=== PATIENT | male | born 1965 | race Caucasian/White ===

== ENCOUNTER 2016-10-11 19:36 | Emergency (ER) | payer OTHER ==
--- NOTE | ~2016-10-11 | CT52 ---
[facility] A Service of [facility] RADIOLOGY TEXT RESULTS PATIENT: JIGAR SCHAEFER LOCATION: [facility] : 63 UNIT #: [id number] AGE: [address]: Davie Garcia MD SEX: M ORDER DR: [id number] [facility] [address] [place], [place] [address] [id number] E MR#: [id number] Acc #: [id number] NAME: JIGAR SCHAEFER. : 1965 SEX: M STUDY DATE/TIME: 10/11/2016 20:49 UNIT: [facility] ROOM: STUDY DESCRIPTION: CT Cervical Spine Wo Cont Attending Physician: Davie Garcia M.D. Ordering Physician: Davie Garcia M.D. Primary Care Physician: Jorge Luis Champion M.D. MEDICAL IMAGING REPORT This report is preliminary unless electronic signature is present EXAM CT cervical spine without contrast DATE 10/11/2016 at 20:49 HISTORY 51-year-old male found down in a liquor store. Intoxicated. Dizziness with neck pain today. COMPARISON None. PROCEDURE 2 mm axial images through the cervical spine without contrast. Sagittal and coronal reformatted images were obtained. This CT exam was performed with one or more of the following radiation dose reduction techniques: Automatic exposure control, adjustment of mA and/or kV according to patient size, and iterative reconstruction. FINDINGS There is advanced loss of disc height at C5-6 and C6-7 with endplate sclerosis and anterior and posterior osteophyte formation and vacuum disc phenomenon. No acute cervical spine fracture or subluxation is seen. At C3-4, there is bilateral uncovertebral spurring with moderate etwcg-wjlczpi-muim-left facet arthropathy, borderline canal stenosis, severe bilateral neural foraminal narrowing. At C4-5, there is bpxmx-vmtjujv-ngkg-left uncovertebral spurring with moderate right, mild left facet arthropathy. There is severe right neural foraminal narrowing, moderate left neural foraminal narrowing, and borderline canal stenosis. [facility] A Service of [facility] RADIOLOGY TEXT RESULTS PATIENT: JIGAR SCHAEFER LOCATION: [facility] #: [id number] : 63 UNIT #: [id number] AGE: [address]: Davie Garcia MD SEX: M ORDER DR: At C5-6, there is posterior disc osteophyte formation eccentric toward the left with left lateral recess stenosis. There is bilateral uncovertebral spurring and tpzy-eg-lzzytjmo bilateral facet arthropathy. There is mild canal stenosis, moderate right, severe left neural foraminal narrowing. At C6-7, broad-based posterior disc osteophyte formation is present resulting in mild canal stenosis. There is bilateral uncovertebral spurring, left greater than right with mild facet arthropathy. There is severe left, mild to moderate right neural foraminal narrowing. C7-T1, no significant disc bulge, canal or foraminal stenosis is seen. Imaged lung apices appear clear. Soft tissues are within normal limits. IMPRESSION 1. No acute cervical spine fracture or subluxation. 2. Multilevel degenerative changes in the cervical spine as described in the report, with severe left greater than right C3-4, severe right C4-5, severe left greater than right C5-6 neural foraminal stenosis. 3. Mild canal stenosis at C6-7, and left lateral recess stenosis at C5-6. Dictated by... She Welch M.D. THIS IS AN ELECTRONICALLY VERIFIED REPORT She Welch M.D. at 10/13/2016 8:34 AM JOSE DAVID/genaro TD: 10/12/2016 00:48 JOB #: [id number] MEDICAL IMAGING REPORT Page 1 of 1 COPY
--- NOTE | ~2016-10-11 | CR72 ---
[facility] A Service of [facility] RADIOLOGY TEXT RESULTS PATIENT: JIGAR SCHAEFER LOCATION: [facility] : 63 UNIT #: [id number] AGE: [address]: Davie Garcia MD SEX: M ORDER DR: [id number] [address] [place], [place] [address] [id number] E MR#: [id number] Acc #: [id number] NAME: JIGAR SCHAEFER. : 1965 SEX: M STUDY DATE/TIME: 10/11/2016 19:46 UNIT: [facility] ROOM: STUDY DESCRIPTION: CR Chest Single View Portable Attending Physician: Davie Garcia M.D. Ordering Physician: Davie Garcia M.D. Primary Care Physician: Jorge Luis Champion M.D. MEDICAL IMAGING REPORT This report is preliminary unless electronic signature is present EXAM AP portable chest 10/11/2016 at 19:46 HISTORY 51-year-old male with cough, weakness and alcohol intoxication. Fell today. COMPARISON AP portable chest 10/29/2005. FINDINGS No acute airspace disease. Heart and mediastinal contour are within normal limits. No acute displaced rib fracture is identified on the current exam. No pleural effusion or pneumothorax is seen. Suspected old bilateral rib fractures. IMPRESSION 1. No acute cardiopulmonary findings. 2. Suspected old bilateral rib fractures. Dictated by... She Welch M.D. THIS IS AN ELECTRONICALLY VERIFIED REPORT She Welch M.D. at 10/12/2016 7:11 AM LLH/pcl TD: 10/12/2016 00:02 JOB #: [id number] [facility] A Service [facility] RADIOLOGY TEXT RESULTS PATIENT: JIGAR SCHAEFER LOCATION: [facility] : 63 UNIT #: [id number] AGE: [address]: Davie Garcia MD SEX: M ORDER DR: MEDICAL IMAGING REPORT Page 1 of 1 COPY
--- NOTE | ~2016-10-11 | EKG ---
PATIENT: JIGAR SCHAEFER UNIT #: [id number] Ventricular Rate: 76 BPM Atrial Rate: 76 BPM P-R Interval: 156 ms QRS Duration: 94 ms Q-T Interval: 392 ms QTC Calculation(Bezet): 441 ms P [place]: 10 degrees Calculated R [place]: 12 degrees Calculated T [place]: 29 degrees Diagnosis Line: Normal sinus rhythm Diagnosis Line: Minimal voltage criteria for LVH, may be normal Diagnosis Line: variant Diagnosis Line: Borderline ECG Diagnosis Line: No previous ECGs available Diagnosis Line: Confirmed by RUY MCBRIDE MD ([id number]) on 10/12/2016 Diagnosis Line: 5:47:33 AM INTERPRETING MD: RAE GAUTAM
--- NOTE | ~2016-10-11 | CT71 ---
[facility] A Service of [facility] RADIOLOGY TEXT RESULTS PATIENT: JIGAR SCHAEFER LOCATION: [facility] : 63 UNIT #: [id number] AGE: [address]: Davie Garcia MD SEX: M ORDER DR: [id number] [place], [place] [address] [id number] E MR#: [id number] Acc #: [id number] NAME: JIGAR SCHAEFER. : 1965 SEX: M STUDY DATE/TIME: 10/11/2016 20:42 UNIT: [facility] ROOM: STUDY DESCRIPTION: CT Head Wo Contrast Attending Physician: Davie Garcia M.D. Ordering Physician: Davie Garcia M.D. Primary Care Physician: Jorge Luis Champion M.D. MEDICAL IMAGING REPORT This report is preliminary unless electronic signature is present EXAM Head CT no contrast, 10/11/2016 INDICATIONS Found down in a liquor store, alcohol on board, spice on board, dizziness, neck pain. TECHNIQUE Noncontrast CT of the brain was performed. This CT exam was performed with one or more of the following radiation dose reduction techniques: Automatic exposure control, adjustment of mA and/or kV according to patient size, and iterative reconstruction. COMPARISON 10/29/[address] BRAIN: There is mild generalized atrophy, sulci and ventricles otherwise unremarkable, no midline shift, no evidence of acute intracranial hemorrhage. There is no mass, mass effect or edema to suggest acute infarct and no extraaxial fluid collections are present. Globes are intact. Bones are intact. Small retention cyst or polyp in the right maxillary sinus. Mild ethmoid sinus disease. IMPRESSION 1. No clearly acute intracranial process, no evidence of acute intracranial hemorrhage. 2. Mild ethmoid and maxillary sinus disease. Dictated by... Topher Rod M.D. [facility] A Service of [facility] RADIOLOGY TEXT RESULTS PATIENT: JIGAR SCHAEFER LOCATION: [facility] : 63 UNIT #: [id number] AGE: [address]: Davie Garcia MD SEX: M ORDER DR: THIS IS AN ELECTRONICALLY VERIFIED REPORT Topher Rod M.D. at 10/12/2016 2:52 PM HO/genaro TD: 10/12/2016 00:43 JOB #: [id number] MEDICAL IMAGING REPORT Page 1 of 1 COPY
[~2016-10-11 19:36] MED LIST: ALPRAZOLAM PO; CELEXA PO; IBUPROFEN800 MG PO; KEFLEX500 MG PO; LIPITOR PO; LISINOPRIL PO; PAXIL40 MG PO; PRINIVIL40 MG PO; PROZAC PO; REMERON PO; SEROQUEL PO; SEROQUEL XR150 MG PO; VICODIN 5/500 T1 TAB PO; VYVANSE40 MG PO; XANAX1 MG PO
[2016-10-11 19:46] LABS: BASOPHIL% 0.5 % (0-2.5); EOSINOPHIL# 0.4 X10e3 (0-0.7); EOSINOPHIL% 7.7 % (0.0-7.0); HEMOGLOBIN 9.9 gm/dL (13.0-16.0); LYMPHOCYTE# 1.4 X10e3 (1.0-3.5); LYMPHOCYTE% 28.3 % (17.0-45.0); MEAN CELL VOLUME 89.8 FL (83-96); MEAN CORPUSCULAR HEMOGLOBIN 29.6 PG (28-34); MEAN PLATELET VOLUME 6.1 FL (6.5-11.5); MONOCYTE# 0.3 X10e3 (0-1.0); MONOCYTE% 6.7 % (3.0-12.0); NEUTROPHIL# 2.8 X10e3 (1.5-7.1); NEUTROPHIL% 56.8 % (40-75); PLATELET COUNT 238 X10e3 (140-420); RED BLOOD COUNT 3.34 X10e (3.90-5.60); RED CELL DISTRIBUTION WIDTH 14.1 % (11.0-15.5); WHITE BLOOD COUNT 4.8 X10e3 (4.0-10.5)
[2016-10-11 19:53] LABS: DIFF IND NO
[2016-10-11 20:14] LABS: ALBUMIN SERUM 3.7 g/dL (3.5-5.0); ALCOHOL BLOOD 24 mg/dL (0); ALKALINE PHOSPHATASE 97 U/L (32-92); ALT (SGPT) 14 U/L (10-40); AST (SGOT) 28 U/L (10-42); BILIRUBIN,TOTAL 0.5 mg/dL (0.2-2.0); BLOOD UREA NITROGEN 20 mg/dL (9-23); BUN/CREATININE RATIO 18.18; CALCIUM SERUM 8.6 mg/dL (8.4-10.2); CARBON DIOXIDE 25 mmol/L (22-31); CHLORIDE 99 mmol/L (100-111); CREATININE SERUM 1.1 mg/dL (0.6-1.4); GLOM FILT RATE Estimated 76.8 mL/min (>60); GLUCOSE FASTING 78 mg/dL (70-110); POTASSIUM 4.9 mmol/L (3.5-5.1); PROTEIN TOTAL SERUM 6.9 g/dL (6.0-8.3); SODIUM 132 mmol/L (135-145)
[2016-10-11 20:18] LABS: BILIRUBIN, DIRECT <0.1 mg/dL (0.0-0.2); BILIRUBIN,INDIRECT 0.4 mg/dL (0.0-0.9)
[2016-10-11 21:06] LABS: POC - CKMB 2.6 ng/mL (0.0-7.9); POC - TROPONIN <0.05 ng/mL (<=0.05)
[2016-10-11 21:54] LABS: AMPHETAMINE POS (NEG); BARBITURATES NEG (NEG); BENZODIAZEPINES POS (NEG); COCAINE NEG (NEG); MARIJUANA NEG (NEG); OPIATES POS (NEG); TRICYCLIC ANTIDEPRESSANTS NEG (NEG); U METHADONE NEG (NEG)
[2016-10-11 22:17] LABS: POC - CKMB 1.9 ng/mL (0.0-7.9); POC - TROPONIN <0.05 ng/mL (<=0.05)
== END 2016-10-11 22:45 | disposition home or self-care (01) ==
LOC: CED 19:36
PROVIDERS: Emergency Medicine
DX: Z04.3 Encounter for examination and observation following other accident (principal); F19.10 Other psychoactive substance abuse, uncomplicated; I10 Essential (primary) hypertension; Z88.2 Allergy status to sulfonamides; Z88.8 Allergy status to other drugs, medicaments and biological substances; W19.XXXA Unspecified fall, initial encounter
CPT/HCPCS: 36415; 70450; 71010; 72125; 80048; 80076; 80307; 82553; 82947; 84484; 85025; 93005; 99284; G0480

== ENCOUNTER 2016-10-20 15:40 | Emergency (ER) | payer OTHER | END 2016-10-20 17:43 | disposition home or self-care (01) | LOC: CED 15:40 | DX: T40.1X1A Poisoning by heroin, accidental (unintentional), initial encounter (principal); F19.10 Other psychoactive substance abuse, uncomplicated; I10 Essential (primary) hypertension; F31.9 Bipolar disorder, unspecified; F17.200 Nicotine dependence, unspecified, uncomplicated; Z90.89 Acquired absence of other organs; Z98.890 Other specified postprocedural states | CPT/HCPCS: 99283 ==